=== PATIENT | male | born 1965 | race Caucasian/White ===

== ENCOUNTER 2017-10-12 16:23 | Inpatient (IN) | payer MEDICARE, MEDICAID ==
[~2017-10-12] VITALS: Ht 180.3 cm; Wt 72.7 kg
[~2017-10-12 16:23] MED LIST: HYDR-569 PO
[2017-10-12] MEDS ORDERED: aspirin 81mg tab.chew PO ONE (16:40)
[2017-10-12 16:51] LABS: BASOPHILS % (AUTO) 0.6 % (0-1); EOSINOPHILS % (AUTO) 0.7 % (0-6); HEMATOCRIT 38.9 % (42.0-52.0); HEMOGLOBIN 13.4 g/dl (14.0-17.9); LYMPHOCYTES # (AUTO) 1.7 X10'3 (1.1-4.8); LYMPHOCYTES % (AUTO) 41.3 % (21-51); MEAN CORPUSCULAR HEMOGLOBIN 33.2 PG (27.0-31.0); MEAN CORPUSCULAR HGB CONC 34.5 % (33.0-36.5); MEAN CORPUSCULAR VOLUME 96.3 FL (78-98); MEAN PLATELET VOLUME 7.8 FL (7.4-10.4); MONOCYTES # (AUTO) 0.4 X10'3 (0-0.9); MONOCYTES % (AUTO) 10.7 % (2-12); NEUTROPHILS # (AUTO) 1.9 X10'3 (1.8-7.7); NEUTROPHILS % (AUTO) 46.7 % (42-75); PLATELET COUNT 218 X10'3 (140-440); RED BLOOD COUNT 4.03 X10'6 (4.70-6.10); RED CELL DISTRIBUTION WIDTH 12.6 % (11.5-14.5); WHITE BLOOD COUNT 4.1 X10'3 (4.5-11.0)
[2017-10-12 17:05] LABS: ALANINE AMINOTRANSFERASE 32 U/L (12-78); ALBUMIN 2.5 G/DL (3.4-5.0); ALBUMIN/GLOBULIN RATIO 0.6 (1.1-1.5); ALKALINE PHOSPHATASE 57 IU/L (46-116); ANION GAP 8 (8-16); ASPARTATE AMINO TRANSFERASE 30 U/L (10-37); BILIRUBIN,TOTAL 0.3 MG/DL (0.1-1.0); BLOOD UREA NITROGEN 14 MG/DL (7-18); BUN/CREATININE RATIO 15.7 (5.4-32.0); CALCIUM 7.8 MG/DL (8.5-10.1); CHLORIDE 106 MMOL/L (99-107); CREATININE 0.89 MG/DL (0.60-1.10); GLUCOSE 128 MG/DL (70-104); SODIUM 141 MMOL/L (135-145); TOTAL CARBON DIOXIDE 26.7 MMOL/L (24-32); TOTAL PROTEIN 6.5 G/DL (6.4-8.2); eGFR 89 ML/MIN
[2017-10-12 17:14] LABS: MAGNESIUM 1.9 MG/DL (1.5-2.4)
[2017-10-12] MEDS ORDERED: potassium 10mEq/100ml NS w/LIDOcaine (10mg/bag) IV ONE (17:50)
[2017-10-12] MEDS ORDERED: potassium Cl 10 mEq/100mL bag IV ONE (17:50)
[2017-10-12] MEDS ORDERED: pantoprazole 40 MG vial IV ONE (18:00)
[2017-10-12] MEDS ORDERED: NO HOME MEDS (18:28)
[2017-10-12] MEDS ORDERED: temazepam 15mg capsule PO PRN (21:00)
[2017-10-12] MEDS ORDERED: ondansetron/PF 4mg/2ml inj IV PRN (22:20)
[2017-10-12] MEDS ORDERED: mag hydrox/Alum hydrox/simeth 30ml oral suspension PO PRN (22:20)
[2017-10-12] MEDS ORDERED: magnesium hydroxide 30ml (MOM) UD suspension PO PRN (22:20)
[2017-10-12] MEDS ORDERED: metoclopramide 5 mg/ml inj IV PRN (22:20)
[2017-10-12] MEDS ORDERED: diphenhydrAMINE 25mg capsule PO PRN (22:20)
[2017-10-12] MEDS ORDERED: HYDROcodone/acetaminophen 5mg/325mg tablet PO PRN (22:20)
[2017-10-12] MEDS ORDERED: HYDROcodone/acetaminophen 10/325mg tab PO PRN (22:20)
[2017-10-12] MEDS ORDERED: diphenhydrAMINE 50 mg/ml inj IV PRN (22:20)
[2017-10-12] MEDS ORDERED: potassium Cl 40MEQ/NS 500ml 500 ML IV PRN ×2 (22:20)
[2017-10-12] MEDS ORDERED: acetaminophen 325mg tablet PO PRN ×2 (22:20)
[2017-10-12] MEDS ORDERED: acetaminophen 650mg rectal suppository RC PRN (22:20)
[2017-10-12] MEDS ORDERED: potassium Cl 20 mEq SR tablet PO PRN (22:20)
[2017-10-12] MEDS ORDERED: bisacodyl 10mg suppository rectal RC PRN (22:20)
[2017-10-12] MEDS ORDERED: LORazepam 1 MG tablet PO PRN (22:25)
[2017-10-12] MEDS ORDERED: dextrose 50%-water 50ml dispensing syringe IV PRN (22:25)
[2017-10-12] MEDS ORDERED: haloperidol 5mg tablet PO PRN (22:25)
[2017-10-12] MEDS ORDERED: haloperidol lactate 5mg/ml inj IM PRN (22:25)
[2017-10-12] MEDS ORDERED: nicotine 21mg patch - 24 hr TD ONE (22:25)
[2017-10-12] MEDS ORDERED: LORazepam 2 mg/ml vial IV PRN (22:25)
[2017-10-12] MEDS ORDERED: thiamine 100mg/ml 2ml inj. IV ONE (22:25)
[2017-10-12] MEDS ORDERED: azithromycin 250mg tablet PO SCH (22:26)
[2017-10-12] MEDS ORDERED: cefTRIAXone 1g/NS 100ml IVPB 100 ML IV SCH (22:26)
[2017-10-12 22:55] LABS: PHOSPHORUS 3.5 MG/DL (2.3-4.5)
[2017-10-12 23:20] LABS: D-DIMER 0.34 MG/L FEU (0-0.50)
[2017-10-12] MEDS: normal saline 1000ml 1,000 ML IV SCH (23:20)
[2017-10-12 23:36] LABS: PARTIAL THROMBOPLASTIN TIME 41 SECONDS (22-32); PROTHROMBIN TIME 10.4 SECONDS (9.0-12.0)
[2017-10-13] MEDS ORDERED: heparin, porcine 5000 units/ml vial SQ SCH
[2017-10-13] MEDS: enoxaparin 100mg/ml syringe SQ SCH ×2 (00:17→11:43)
[2017-10-13 01:00] VITALS: BP 120/73
[2017-10-13] MEDS ORDERED: benzonatate 100mg capsule PO PRN (01:40)
[2017-10-13 05:48] LABS: BASOPHILS % (AUTO) 0.1 % (0-1); EOSINOPHILS # (AUTO) 0.6 X10'3 (0-0.9); EOSINOPHILS % (AUTO) 4.5 % (0-6); LYMPHOCYTES # (AUTO) 1.2 X10'3 (1.1-4.8); MEAN CORPUSCULAR HEMOGLOBIN 30.7 PG (27.0-31.0); MEAN CORPUSCULAR HGB CONC 33.4 % (33.0-36.5); MEAN CORPUSCULAR VOLUME 91.8 FL (78-98); MEAN PLATELET VOLUME 7.5 FL (7.4-10.4); MONOCYTES # (AUTO) 1.4 X10'3 (0-0.9); MONOCYTES % (AUTO) 10.9 % (2-12); NEUTROPHILS % (AUTO) 75.5 % (42-75); PLATELET COUNT 297 X10'3 (140-440); RED BLOOD COUNT 3.59 X10'6 (4.70-6.10); RED CELL DISTRIBUTION WIDTH 14.1 % (11.5-14.5); WHITE BLOOD COUNT 13.2 X10'3 (4.5-11.0)
[2017-10-13 07:18] VITALS: BP 128/82
[2017-10-13 07:23] LABS: ALANINE AMINOTRANSFERASE 35 U/L (12-78); ALBUMIN 2.5 G/DL (3.4-5.0); ALBUMIN/GLOBULIN RATIO 0.6 (1.1-1.5); ALKALINE PHOSPHATASE 58 IU/L (46-116); ANION GAP 9 (8-16); ASPARTATE AMINO TRANSFERASE 33 U/L (10-37); BILIRUBIN,TOTAL 0.3 MG/DL (0.1-1.0); BLOOD UREA NITROGEN 13 MG/DL (7-18); BUN/CREATININE RATIO 15.9 (5.4-32.0); CALCIUM 8.2 MG/DL (8.5-10.1); CHLORIDE 106 MMOL/L (99-107); CREATININE 0.82 MG/DL (0.60-1.10); GLUCOSE 98 MG/DL (70-104); POTASSIUM 3.9 MMOL/L (3.5-5.1); SODIUM 141 MMOL/L (135-145); TOTAL CARBON DIOXIDE 26.4 MMOL/L (24-32); TOTAL PROTEIN 6.8 G/DL (6.4-8.2); eGFR > 90 ML/MIN
[2017-10-13] MEDS ORDERED: pantoprazole 40mg Tablet.DR PO SCH (07:30)
[2017-10-13] MEDS ORDERED: methylPREDNISolone sod succ 125mg/2ml vial IV SCH (08:00)
[2017-10-13] MEDS ORDERED: lisinopril 5mg tablet PO SCH (08:00)
[2017-10-13] MEDS ORDERED: K and/or MAG REPLACEMENT MC SCH (08:00)
[2017-10-13] MEDS ORDERED: metoprolol tartrate 25mg tablet PO SCH (08:00)
[2017-10-13] MEDS ORDERED: atorvastatin 10mg tablet PO SCH (08:00)
[2017-10-13] MEDS ORDERED: aspirin 81mg tab.chew PO SCH (08:00)
[2017-10-13] MEDS ORDERED: docusate sod 100mg capsule PO SCH (08:00)
[2017-10-13] MEDS ORDERED: nitroGLYCERIN 0.1mg/hour patch TD SCH (08:00)
[2017-10-13] MEDS ORDERED: guaiFENesin ER 600mg tablet PO SCH (08:00)
[2017-10-13 09:14] LABS: OCCULT BLOOD STOOL NEGATIVE (Neg)
[2017-10-13] MEDS ORDERED: CefTRIAXone/D5W-Rocephin 1gm 50 ML IV SCH (10:30)
[2017-10-13] MEDS: normal saline 1000ml 1,000 ML IV SCH (11:30)
[2017-10-13] MEDS: potassium Cl 20 mEq SR tablet PO PRN ×2 (11:42→16:22)
[2017-10-13] MEDS ORDERED: lactobacillus rhamnosus 10,000 MMU CELLS/CAPSULE PO SCH (17:30)
[2017-10-13] MEDS ORDERED: CefTRIAXone 1 gm/50ml D5W ADV 50 ML IV SCH (20:00)
[2017-10-14] MEDS ORDERED: pneumococcal 23-VAL P-sac vacc 25 mcg/0.5ml vial IMVAC ONE (10:00)
[2017-10-14] MEDS ORDERED: FLU VACC QS2017-18 36MOS UP/PF 60 MCG/0.5 ML SYRINGE IMVAC ONE (10:00)
== END 2017-10-13 17:15 | disposition home or self-care (01) | DRG 282 ==
LOC: ER 16:24 → ED HOLD 22:16 → SUR 3N 23:35
PROVIDERS: ADMIT Family Medicine; ATTEND Family Medicine
DX: I21.4 Non-ST elevation (NSTEMI) myocardial infarction (principal); D64.9 Anemia, unspecified; E87.6 Hypokalemia; I10 Essential (primary) hypertension; I25.10 Atherosclerotic heart disease of native coronary artery without angina pectoris; J45.909 Unspecified asthma, uncomplicated; G89.29 Other chronic pain; M54.9 Dorsalgia, unspecified; F17.210 Nicotine dependence, cigarettes, uncomplicated; F10.20 Alcohol dependence, uncomplicated; Z60.2 Problems related to living alone; I25.2 Old myocardial infarction; Z79.82 Long term (current) use of aspirin; Z56.0 Unemployment, unspecified
CPT/HCPCS: 36415; 71045; 80053; 82272; 82948; 83735; 83880; 84100; 84484; 85025; 85379; 85610; 85730; 87070; 90732; 93005; 94760; 96361; 96374; 99285; C9113; J0696; J1644; J1650; J2930; J3411; J3480; J7030; Q2037

== ENCOUNTER 2021-06-17 10:54 | Emergency (ER) | payer MEDICARE, MEDICAID ==
[~2021-06-17] VITALS: Ht 180.3 cm; Wt 79.0 kg
[~2021-06-17 10:54] MED LIST changes: -HYDR-569 PO; +NO HOME MEDS
[2021-06-17] MEDS ORDERED: normal saline 1000ML IV soln IVB ONE ×2 (11:10→11:50)
[2021-06-17] MEDS ORDERED: diltiazem 5mg/ml 5ml inj. IV ONE ×2 (11:10→11:50)
[2021-06-17 11:26] LABS: BASOPHILS # (AUTO) 0.1 X10'3 (0-0.2); EOSINOPHILS % (AUTO) 0.4 % (0-6); HEMATOCRIT 43.2 % (42.0-52.0); HEMOGLOBIN 14.7 g/dl (14.0-17.9); LYMPHOCYTES # (AUTO) 2.9 X10'3 (1.1-4.8); LYMPHOCYTES % (AUTO) 26.8 % (21-51); MEAN CORPUSCULAR HGB CONC 34.2 g/dL (33.0-36.5); MEAN CORPUSCULAR VOLUME 99.6 FL (78-98); MEAN PLATELET VOLUME 8.8 FL (7.4-10.4); MONOCYTES # (AUTO) 0.8 X10'3 (0-0.9); MONOCYTES % (AUTO) 7.5 % (2-12); NEUTROPHILS # (AUTO) 7.1 X10'3 (1.8-7.7); NEUTROPHILS % (AUTO) 64.3 % (42-75); PLATELET COUNT 237 X10'3 (140-440); RED BLOOD COUNT 4.33 X10'6 (4.70-6.10); RED CELL DISTRIBUTION WIDTH 12.5 % (11.5-14.5)
[2021-06-17 11:38] LABS: ALANINE AMINOTRANSFERASE 44 U/L (12-78); ALBUMIN 2.7 G/DL (3.4-5.0); ALBUMIN/GLOBULIN RATIO 0.7 (1.1-1.5); ALKALINE PHOSPHATASE 77 IU/L (46-116); ANION GAP 8 (8-16); ASPARTATE AMINO TRANSFERASE 32 U/L (10-37); BILIRUBIN,TOTAL 0.7 MG/DL (0.1-1.0); BLOOD UREA NITROGEN 15 MG/DL (7-18); BUN/CREATININE RATIO 14.9 (5.4-32.0); CHLORIDE 105 MMOL/L (99-107); CREATININE 1.01 MG/DL (0.60-1.10); GLUCOSE 146 MG/DL (70-104); POTASSIUM 4.5 MMOL/L (3.5-5.1); SODIUM 141 MMOL/L (135-145); TOTAL CARBON DIOXIDE 28.1 MMOL/L (24-32); TOTAL PROTEIN 6.8 G/DL (6.4-8.2); eGFR 76 ML/MIN
[2021-06-17] MEDS ORDERED: LORazepam 2 mg/ml vial IV ONE (11:40)
[2021-06-17 11:45] LABS: ETHANOL < 0.010 GM/DL (0.0-0.010); MAGNESIUM 2.1 MG/DL (1.5-2.4)
[2021-06-17 12:52] LABS: URINE AMPHETAMINE SCREEN POSITIVE (Neg); URINE BARBITUATE SCREEN NEGATIVE (Neg); URINE BENZODIAZEPINES SCREEN NEGATIVE (Neg); URINE CANNABINOID SCREEN NEGATIVE (Neg); URINE COCAINE SCREEN NEGATIVE (Neg); URINE METHADONE SCREEN NEGATIVE (Neg); URINE OPIATE SCREEN NEGATIVE (Neg); URINE PHENCYCLIDINE SCREEN NEGATIVE (Neg)
[2021-06-17 15:57] VITALS: BP 96/64
== END 2021-06-17 16:04 | disposition home or self-care (01) ==
LOC: ER 10:54
DX: I48.92 Unspecified atrial flutter (principal); F15.129 Other stimulant abuse with intoxication, unspecified; I25.10 Atherosclerotic heart disease of native coronary artery without angina pectoris; I10 Essential (primary) hypertension; G89.29 Other chronic pain; I25.2 Old myocardial infarction; Z72.89 Other problems related to lifestyle; Z95.5 Presence of coronary angioplasty implant and graft; Z56.0 Unemployment, unspecified
CPT/HCPCS: 36415; 71045; 80053; 80305; 80320; 83735; 83880; 84484; 85025; 85610; 93005; 96361; 96374; 96376; 99285; J7030; J3490

== ENCOUNTER 2024-01-20 09:07 | Emergency (ER) | payer MEDICARE, MEDICAID ==
[~2024-01-20] VITALS: Ht 180.3 cm; Wt 78.2 kg
[~2024-01-20 09:07] MED LIST changes: +APIX5TAB3 PO; +FLO0.4C PO; +LACT1CAP26 PO; -NO HOME MEDS; +SACU1TAB PO; +TRAZ-251 PO; +ZOLP10TA PO
[2024-01-20 09:10] VITALS: BP 112/56; PULSE 60; RESP 16; TEMP 98; O2SAT 95
[2024-01-20] MEDS ORDERED: PRED20TA PO (09:33)
[2024-01-20] MEDS ORDERED: METH-798 PO (09:33)
[2024-01-20] MEDS: dexamethasone sod phosphate 10mg/ml inj IM STA (09:54)
== END 2024-01-20 09:56 | disposition home or self-care (01) ==
LOC: ER 09:07
DX: M54.12 Radiculopathy, cervical region (principal); M25.511 Pain in right shoulder; I10 Essential (primary) hypertension; Z88.8 Allergy status to other drugs, medicaments and biological substances; Z79.899 Other long term (current) drug therapy
CPT/HCPCS: 96372; 99283; J1100

== ENCOUNTER 2024-02-14 09:55 | Emergency (ER) | payer MEDICARE, MEDICAID ==
[~2024-02-14] VITALS: Ht 180.3 cm; Wt 77.1 kg
[~2024-02-14 09:55] MED LIST changes: +METH-798 PO
[2024-02-14 10:19] VITALS: PULSE 54; TEMP 97.6; O2SAT 97
[2024-02-14] MEDS ORDERED: PRED20TA PO (10:58)
[2024-02-14 11:11] VITALS: RESP 16
[2024-02-14] MEDS: ketorolac tromethamine 15mg/ml inj. IM ONE (11:11)
== END 2024-02-14 11:18 | disposition home or self-care (01) ==
LOC: ER 09:56
DX: M54.12 Radiculopathy, cervical region (principal); Z88.8 Allergy status to other drugs, medicaments and biological substances; Z98.890 Other specified postprocedural states
CPT/HCPCS: 96372; 99283; J1885

== ENCOUNTER 2024-03-20 21:44 | Emergency (ER) | payer MEDICARE, MEDICAID ==
[~2024-03-20] VITALS: Ht 180.3 cm; Wt 74.0 kg
[2024-03-20] MEDS ORDERED: LIDO700A32 TOP (22:46)
[2024-03-20] MEDS ORDERED: ketorolac trometh. 30mg/ml inj. IM ONE (22:50)
[2024-03-20] MEDS: ketorolac tromethamine 15mg/ml inj. IM ONE (23:08)
[2024-03-20] MEDS: dexamethasone sod phosphate 10mg/ml inj PO STA (23:09)
[2024-03-20] MEDS: cyclobenzaprine 10mg tablet PO ONE (23:09)
[2024-03-20 23:16] VITALS: BP 130/79; PULSE 40; TEMP 98.5; O2SAT 98
[2024-03-20 23:40] VITALS: RESP 16
== END 2024-03-20 23:43 | disposition home or self-care (01) ==
LOC: ER 21:45
DX: S39.012A Strain of muscle, fascia and tendon of lower back, initial encounter (principal); S33.5XXA Sprain of ligaments of lumbar spine, initial encounter; M54.32 Sciatica, left side; G89.29 Other chronic pain; I25.10 Atherosclerotic heart disease of native coronary artery without angina pectoris; I10 Essential (primary) hypertension; I25.2 Old myocardial infarction; Z98.890 Other specified postprocedural states; Z88.8 Allergy status to other drugs, medicaments and biological substances; Z79.899 Other long term (current) drug therapy; X58.XXXA Exposure to other specified factors, initial encounter; Y93.89 Activity, other specified; Y92.89 Other specified places as the place of occurrence of the external cause; Y99.8 Other external cause status
CPT/HCPCS: 72100; 93005; 96372; 99283; J1100; J1885

== ENCOUNTER 2024-03-30 12:25 | Emergency (ER) | payer MEDICARE, MEDICAID ==
[~2024-03-30] VITALS: Ht 180.3 cm; Wt 70.6 kg
[~2024-03-30 12:25] MED LIST changes: +LIDO700A32 TOP
[2024-03-30 13:02] VITALS: BP 136/66; PULSE 58; TEMP 97.8; O2SAT 98
[2024-03-30 13:56] VITALS: RESP 15
[2024-03-30] MEDS: ketorolac tromethamine 15mg/ml inj. IM ONE (13:56)
== END 2024-03-30 14:40 | disposition home or self-care (01) ==
LOC: ER 12:25
DX: M25.511 Pain in right shoulder (principal); I25.10 Atherosclerotic heart disease of native coronary artery without angina pectoris; I10 Essential (primary) hypertension; I25.2 Old myocardial infarction; G89.29 Other chronic pain; M54.9 Dorsalgia, unspecified; Z98.890 Other specified postprocedural states; Z88.8 Allergy status to other drugs, medicaments and biological substances; Z79.899 Other long term (current) drug therapy
CPT/HCPCS: 96372; 99283; J1885

== ENCOUNTER 2024-04-23 21:21 | Emergency (ER) | payer MEDICARE, MEDICAID ==
[~2024-04-23] VITALS: Ht 180.3 cm; Wt 75.1 kg
[2024-04-23] MEDS ORDERED: HYDR-3965 PO (22:20)
[2024-04-23] MEDS ORDERED: METH4TAB81 PO (22:20)
[2024-04-23] MEDS: ketorolac tromethamine 15mg/ml inj. IM ONE (22:26)
[2024-04-23 22:29] VITALS: BP 150/62; PULSE 67; RESP 16; TEMP 98; O2SAT 99
== END 2024-04-23 22:31 | disposition home or self-care (01) ==
LOC: ER 21:21
DX: M54.16 Radiculopathy, lumbar region (principal); M79.661 Pain in right lower leg; Z88.8 Allergy status to other drugs, medicaments and biological substances; Z87.891 Personal history of nicotine dependence
CPT/HCPCS: 96372; 99283; J1885

== ENCOUNTER 2024-05-16 19:03 | Emergency (ER) | payer MEDICARE, MEDICAID ==
[~2024-05-16] VITALS: Ht 180.3 cm; Wt 76.4 kg
[~2024-05-16 19:03] MED LIST changes: +HYDR-3965 PO; +METH4TAB81 PO
[2024-05-16 19:13] VITALS: BP 126/49; PULSE 62; RESP 18; TEMP 98.1; O2SAT 97
[2024-05-16] MEDS ORDERED: HYDR-3965 PO (19:47)
[2024-05-16] MEDS: ondansetron 4mg rapidly disintigrating tab PO ONE (20:01)
== END 2024-05-16 20:15 | disposition home or self-care (01) ==
LOC: ER 19:04
DX: G89.29 Other chronic pain (principal); M54.9 Dorsalgia, unspecified; Z76.0 Encounter for issue of repeat prescription; I25.10 Atherosclerotic heart disease of native coronary artery without angina pectoris; I10 Essential (primary) hypertension; I25.2 Old myocardial infarction; Z98.61 Coronary angioplasty status; Z88.8 Allergy status to other drugs, medicaments and biological substances; Z79.899 Other long term (current) drug therapy; Z79.52 Long term (current) use of systemic steroids
CPT/HCPCS: 99281

== ENCOUNTER 2024-05-28 12:55 | Emergency (ER) | payer MEDICARE, MEDICAID ==
[~2024-05-28] VITALS: Ht 180.3 cm; Wt 74.8 kg
[~2024-05-28 12:55] MED LIST changes: -HYDR-3965 PO
[2024-05-28] MEDS ORDERED: CYCL-394 PO (14:37)
[2024-05-28] MEDS ORDERED: NAPR-56 PO (14:37)
[2024-05-28 14:49] VITALS: BP 136/74; PULSE 86; RESP 18; TEMP 98.1; O2SAT 98
== END 2024-05-28 14:55 | disposition home or self-care (01) ==
LOC: ER 12:56
DX: G89.29 Other chronic pain (principal); M54.9 Dorsalgia, unspecified; Z76.0 Encounter for issue of repeat prescription; I10 Essential (primary) hypertension; I25.2 Old myocardial infarction; I25.10 Atherosclerotic heart disease of native coronary artery without angina pectoris; Z98.61 Coronary angioplasty status; Z88.8 Allergy status to other drugs, medicaments and biological substances; Z79.899 Other long term (current) drug therapy; Z79.52 Long term (current) use of systemic steroids; Z79.1 Long term (current) use of non-steroidal anti-inflammatories (NSAID)
CPT/HCPCS: 99283

== ENCOUNTER 2024-06-28 17:35 | Emergency (ER) | payer MEDICARE, MEDICAID ==
[~2024-06-28] VITALS: Ht 180.3 cm; Wt 76.5 kg
[~2024-06-28 17:35] MED LIST changes: +CYCL-394 PO; +NAPR-56 PO
[2024-06-28 17:58] VITALS: TEMP 98
[2024-06-28 18:43] LABS: BILIRUBIN,URINE SMALL (Neg); CLARITY,URINE SLIGHTLY CLOUDY (Clear); COLOR,URINE YELLOW (Yellow); GLUCOSE, URINE NEGATIVE (Neg); KETONES,URINE TRACE mg/dl (Neg); LEUKOCYTE ESTERASE ,URINE SMALL (Neg); OCCULT BLOOD,URINE SMALL (Neg); PH,URINE 5.5 (4.8-8.0); PROTEIN,URINE 30 mg/dl (Neg)
[2024-06-28 18:50] LABS: UA COLLECTION TYPE CLN CATCH MIDSTREAM
[2024-06-28 18:53] LABS: NITRITES, URINE NEGATIVE (Neg)
[2024-06-28 18:58] LABS: HYALINE CASTS 0-3 /LPF (NEGATIVE); MUCUS STRANDS FEW /LPF (Neg); SQUAMOUS EPITHELIAL CELL,UR FEW /LPF (FEW)
[2024-06-28 18:59] LABS: WBC,URINE 30-50 /HPF (0-4)
[2024-06-28 19:00] LABS: BACTERIA,URINE FEW /HPF (Neg)
[2024-06-28] MEDS ORDERED: LEVO-65 PO (21:13)
[2024-06-28] MEDS ORDERED: PHEN-716 PO (21:13)
[2024-06-28] MEDS: CefTRIAXone 1000mg IM Kit (w/lidocaine diluent) IM ONE (21:58)
[2024-06-28] MEDS: phenazopyridine 100mg tablet PO ONE (21:58)
[2024-06-28 22:39] VITALS: BP 147/89; PULSE 87; RESP 18; O2SAT 97
== END 2024-06-28 22:41 | disposition home or self-care (01) ==
LOC: ER 17:36
DX: R82.81 Pyuria (principal); R35.0 Frequency of micturition; I25.10 Atherosclerotic heart disease of native coronary artery without angina pectoris; I10 Essential (primary) hypertension; G89.29 Other chronic pain; M54.9 Dorsalgia, unspecified; R39.15 Urgency of urination; Z88.8 Allergy status to other drugs, medicaments and biological substances; Z79.899 Other long term (current) drug therapy
CPT/HCPCS: 81001; 87088; 96372; 99283; J0696